=== PATIENT | female | born 1985 | race Caucasian/White ===

== ENCOUNTER 2018-09-22 21:00 | Emergency (ER) ==
[2018-09-22 21:15] VITALS: BP 128/76; TEMP 98.6; BMI 18.1
--- NOTE | 2018-09-22 22:26 | CT ---
Exam: CT of the right foot without contrast History: Foot injury Technique: [address] of the right foot without contrast. FINDINGS: No recent plain radiograph available. No bony or articular abnormality of the foot. Spec ifically, no fracture or degenerative change. No surrounding soft tissue abnormality. A specific si te of injury and pain has not been designated. Impression: 1. No abnormalities of the right foot.
--- NOTE | 2018-09-22 22:36 | ED.PDOC ---
General ED Provider: Dr. MUKUL HAWKINS-ER Chief Complaint: Extremity Pain/Injury Stated Complaint: my foot hurts Time Seen by Physician: 21:05 Mode of Arrival: Walk-In Information Source: Patient Exam Limitations: No limitations Primary Care Provider: CHANTAL VENEGAS Nursing and Triage Documentation Reviewed and Agree: Yes Does patient meet sepsis criteria?: No System Inflammatory Response Syndrome: Not Applicable Sepsis Protocol: For patient's 13 years and over: Temp is 96.8 and below OR 101 and greater Pulse >90 BPM Resp >20/minute Acutely Altered Mental Status Are patient's symptoms suggestive of a new infection, such as: -Pneumonia -Skin, Soft Tissue -Endocarditis -UTI -Bone, Joint Infection -Implantable Device -Acute Abdominal Infection -Wound Infection -Meningitis -Blood Stream Catheter Infection -Unknown Musculoskeletal Complaint Exam - Ankle/Foot Complaint/Exam Location of Injury: Reports: Right, Foot Mechanism of Injury: Reports: No known trauma Onset/Duration: 2 days Symptoms Are: Reports: Still present Onset of Pain: Reports: Immediate Initial Severity: Mild Current Severity: Mild Location: Reports: Diffuse Character: Reports: Dull, Aching Aggravating: Reports: Movement, Weight bearing, Prolonged standing Able to Bear Weight: No Associated Signs and Symptoms: Denies: Swelling, Redness, Bruising, Fever, Weakness, Numbness, Tingling Lower Extremity Findings: Present: Tenderness. Absent: Swelling, Ecchymosis, Abnormal contour, Rotation, Ligamentous instability, Laceration, Erythema, Warmth, Blisters, Other joint pain, Foreign body Achilles Tendon Abnormality: No Tenderness: Present: Midfoot Differential Diagnosis: Contusion, Sprain, Strain Review of Systems - Review Of Systems Constitutional: Reports: No symptoms Eyes: Reports: No symptoms Ears, Nose, Mouth, Throat: Reports: No symptoms Respiratory: Reports: No symptoms Cardiac: Reports: No symptoms GI: Reports: No symptoms : Reports: No symptoms Musculoskeletal: Reports: Joint pain Skin: Reports: No symptoms Neurological: Reports: No symptoms Endocrine: Reports: No symptoms Hematologic/Lymphatic: Reports: No symptoms All Other Systems: Reviewed and Negative Past Medical History - Past Medical History Previously Healthy: Yes Endocrine: Reports: None Cardiovascular: Reports: None Respiratory: Reports: None Hematological: Reports: None Gastrointestinal: Reports: None Genitourinary: Reports: None Neuro/Psych: Reports: None Musculoskeletal: Reports: None Cancer: Reports: None Last Menstrual Period: 08/15/18 PERIOD WAS ONLY 2 DAYS - Surgical History General Surgical History: Reports: Appendectomy - Family History Family History: Reports: None - Social History Smoking Status: Current every day smoker, Light tobacco smoker Hx Substance Use: No Alcohol Screening: None - Immunizations Tetanus Shot up to Date: Yes Physical Exam - Physical Exam Appearance: Well-appearing, No pain distress, Well-nourished Eyes: TAVON, EOMI, Conjunctiva clear ENT: Ears normal, Nose normal, Oropharynx normal Neck: Supple Respiratory: Airway patent, Breath sounds clear, Breath sounds equal, Respirations nonlabored Cardiovascular: RRR, Pulses normal, No rub, No murmur GI/: Soft, Nontender, No masses, Bowel sounds normal, No Organomegaly Musculoskeletal: Limited ROM Skin: Warm, Dry, Normal color Neurological: Sensation intact Psychiatric: Affect appropriate, Mood appropriate Interpretation - Radiology Interpretation Radiology Interpretation By: Radiologist Radiology Results: Negative Exam Interpreted: CT Scan Critical Care Note - Critical Care Note Total Time (mins): 0 Course - Course Orders, Labs, Meds: Lab Review 09/22/18 21:37 Serum , Qual Negative Orders Category Date Time Status SERUM Stat LAB 09/22/18 21:[address] FOOT RIGHT WITHOUT CONTRAST Stat RADS 09/22/18 21:29 Completed Vital Signs: Temp Pulse Resp BP Pulse Ox 09/22/18 21:01 98.6 F 93 H 18 128/76 99 Departure - Departure Time of Disposition: 22:36 Disposition: AMA Discharge Problem: Injury of lower extremity Condition: Good Pt referred to PMD for follow-up: Yes IPMP verified?: No Allergies/Adverse Reactions: Allergies amoxicillin [Amoxicillin] Adverse Reaction (Verified 12/23/15 20:49) UTI codeine Adverse Reaction (Verified 09/22/18 21:17) HIVES. TROUBLE BREATHING PT STATES CAN TAKE NOW, TOOK TYLENOL #3 IN 2017 AND HAD NO REACTION sulfamethoxazole [From Bactrim] Adverse Reaction (Verified 09/22/18 21:17) Hives tramadol Adverse Reaction (Verified 09/22/18 21:17) Hives trazodone Adverse Reaction (Verified 12/23/15 20:49) HIVES, TROUBLE BREATHING trimethoprim [From Bactrim] Adverse Reaction (Verified 09/22/18 21:17) Hives Home Medications: Ambulatory Orders 1 [No Reported Medications] 12/23/15
== END 2018-09-22 22:05 | disposition left against medical advice (07) ==
LOC: ED 21:00
DX: S99.921A Unspecified injury of right foot, initial encounter (principal); F17.210 Nicotine dependence, cigarettes, uncomplicated
CPT/HCPCS: 36415; 84703; 99284